=== PATIENT | female | born 1990 | race Caucasian/White ===

== ENCOUNTER → 2020-07-25 09:43 | Outpatient (BNVA) | payer MEDICAID, SELFPAY | PROVIDERS: Family Provider Family Medicine; Visit Provider Nurse Practitioner Women's Health | DX: Z34.90 Encounter for supervision of normal pregnancy, unspecified, unspecified trimester (principal) | CPT/HCPCS: 81000 ==

== ENCOUNTER 2021-02-06 02:02 | Inpatient (IN) | payer MEDICAID, SELFPAY ==
[2021-02-06] VITALS (36 sets, daily range): BP systolic 101–132; BP diastolic 58–91; PULSE 65–106; RESP 14–17; TEMP 36–36.8; O2SAT 92–99; BMI 28.5
--- NOTE | 2021-02-06 01:46 | PC.NURSE ---
Ruben HITCHCOCK, MAL CALLED AT THIS TIME TO COME TO THE HOSPITAL DUE TO PT LABORING.
[2021-02-06 02:25] LABS: Basophils % 0.3 %; Eosinophils # 0.1 10^3/uL (0.0-0.8); Eosinophils % 0.8 %; Hematocrit 38.4 % (37.0-47.0); Hemoglobin 12.1 g/dL (11.5-15.3); Lymphocytes # 1.7 10^3/uL (0.8-4.8); Lymphocytes % 11.7 %; Mean Corpuscular HGB Conc 31.5 g/dL (30.0-36.0); Mean Corpuscular Hemoglobin 27.3 pg (28.0-34.0); Mean Corpuscular Volume 86.5 fL (81-99); Mean Platelet Volume 11.3 fL (7.4-10.4); Neutrophils # 11.24 10^3/uL (1.8-7.7); Neutrophils % 79.6 %; Nucleated Red Blood Cells % 0 %; Platelet Count 255 10^3/cmm (130-400); Red Blood Count 4.44 10^6/uL (4.1-5.3); Red Cell Distribution Width 12.4 % (12.1-15.1); White Blood Count 14.1 10^3/uL (4.0-10.0)
[2021-02-06] MEDS: fentaNYL 50 mcg/mL INJ 2mL IVP (02:47)
[2021-02-06] MEDS: dextrose 5%-lactated ringers 1,000 ML 125 ML IV (04:10)
[2021-02-06] MEDS: oxytocin 30 UNIT/500 ML BAG 600 UNIT IV (04:10)
--- NOTE | 2021-02-06 04:38 | P.PCNOB_ITS ---
Delivery Note: Date of delivery: February 06, 2021 Pre-delivery diagnoses: 30-year-old 6 para 4-0-1-4 with a previous C- section at 39 weeks and 4 days presenting in active labor and desiring a trial of labor. Post-delivery diagnoses: Status post Procedure: Op report anesthesia: None Delivering Physician: Get Evans Estimated blood loss (mL): 150 Pre-Delivery Course: The patient is a 30-year-old 6 para 4-0-1-4 with an estimated gestational age of 39 weeks with a previous presenting in active labor. Her was unremarkable. Her labs were also unremarkable. Her blood type was O+. Her GBS status is negative. The patient presented to the hospital in active labor. She was 4 cm dilated and 85% effaced. She progressed to complete without difficulty. An amniotomy was performed about an hour prior to delivery. heart tones were category 1 throughout. Delivery: DELIVERY: The patient progressed to complete without difficulty. She delivered a female with a weight of 7 pounds 4 ounces with Apgars of 8, 10. The baby was delivered from the SHERICE position and placed on the mother's abdomen. The cord was then clamped and cut about 5 minutes after delivery. There was no nuchal cord. There was no meconium. The placenta and 3 vessel cord were delivered intact shortly thereafter. The perineum and vaginal vault were carefully examined. A superficial laceration was noted on the patient's right anterior vaginal wall. No repair was made.. Both the mother and the baby were in stable condition. Post-Delivery Status: Good A&P Assessment and plan (1) , delivered: Status: Acute (2) 39 weeks gestation of : Status: Acute Coding Level of Care Code Acute Health And Safety Manager for Chg Fwd Diagnoses , delivered O34.219 39 weeks gestation of Z3A.39
[2021-02-06 16:42] LABS: Hematocrit 33.8 % (37.0-47.0); Hemoglobin 10.6 g/dL (11.5-15.3); Mean Corpuscular HGB Conc 31.4 g/dL (30.0-36.0); Mean Corpuscular Hemoglobin 27.5 pg (28.0-34.0); Mean Corpuscular Volume 87.8 fL (81-99); Mean Platelet Volume 11.5 fL (7.4-10.4); Platelet Count 211 10^3/cmm (130-400); Red Blood Count 3.85 10^6/uL (4.1-5.3); Red Cell Distribution Width 12.7 % (12.1-15.1); White Blood Count 11.6 10^3/uL (4.0-10.0)
[2021-02-07 04:07] VITALS: BP 109/64; PULSE 70
[2021-02-07 04:15] VITALS: RESP 16; TEMP 36.4
--- NOTE | 2021-02-07 07:22 | PM.OBGYDC ---
Discharge Providers [employer] ATTENDANT Date of Admission: 02/06/21 02:02 Date of Discharge: 02/07/21 Attending Provider at Admission: Get Evans MD Attending Provider at Discharge: Get Evans MD Primary Care Provider: Manuel Solitario MD Diagnoses at Discharge Discharge Diagnosis (1) , delivered: Status: Acute (2) 39 weeks gestation of : Status: Acute Reason for Visit Reason for Visit: contractions Hospital Course Hospital Course This 30-year-old with a previous history of section secondary to distress I desired to have a vaginal after section. She arrived to [facility] labor and delivery in active labor and was able to deliver by spontaneous vaginal livery healthy, viable infant. She has done well since delivery with only mild lochia. There has been no significant bleeding and no significant clots. Baby is breast-feeding well. She is felt to be stable for discharge this morning. Information Peripartum Data: Delivery Method: Vaginal Physical Exam Const: COMMON NORMALS: no acute distress, average body habitus and healthy appearing HENMT: COMMON NORMALS: moist oral mucous membranes Resp: COMMON NORMALS: normal respiratory effort, No retractions, No use of accessory muscles and clear to auscultation bilaterally AUSCULTATION: clear to auscultation bilaterally Cardio: COMMON NORMALS: regular rate and regular rhythm RATE: regular rate RHYTHM: regular rhythm GI: COMMON NORMALS: Normal to inspection, nondistended, normoactive bowel sounds present, Soft to palpation (Fundus is firm and well below the umbilicus.) and non-tender PALPATION: Yes Soft to palpation (Fundus is firm and well below the umbilicus.) Back/Pelvis: COMMON NORMALS: no thoracic nor lumbar tenderness Extremity: COMMON NORMALS: normal to inspection, full ROM, no calf tenderness and no pedal edema Neuro: COMMON NORMALS: moves all extremities and no sensory deficits noted Psych: COMMON NORMALS: mental status grossly normal, cooperative and normal affect Discharge Data Data Completed and Pending: Labs from last 24 hours 02/06/21 16:30 WBC 11.6 H RBC 3.85 L Hgb 10.6 L Hct 33.8 L MCV 87.8 MCH 27.5 L MCHC 31.4 RDW 12.7 Plt Count 211 MPV 11.5 H Vitals: Last Vital Signs Temp 97.5 F L 02/07/21 04:15 Pulse 70 02/07/21 04:07 Resp 16 02/07/21 04:15 BP 109/64 02/07/21 04:07 Pulse Ox 96 02/06/21 02:36 Discharge Plan Discharge Patient Disposition: Home Condition: Stable Prescriptions: New docusate sodium 100 mg Capsule 100 mg PO BID Qty: 60 RF: 1 ibuprofen 800 mg Tablet 800 mg PO TID Qty: 90 RF: 1 Continued [place] 168 mg calcium (420 mg) tablet,chewable 168 mg PO DAILY RF: 0 prenat.vits,yue,zzj-srsj-zrpdd Tablet 1 tab PO BID RF: 0 Discharge Orders: Discharge Order (Routine); Ordered 02/07/21 Ordered By: Manuel Solitario Referrals: Get Evans MD [Physician] - 6 Weeks Discharge Diet: Usual diet Discharge Activity: Resume usual activity Patient Instructions: Opioid Safety Discharge Attestations [employer] ATTENDANT Time Spent in Discharge Care*: less than 30 min Specific Discharge Activities: Specific discharge activities: educating patient, documenting/other paperwork and evaluating patient/reviewing data Coding Level of Care Code Acute Transportation Aid for Chg Fwd Exam Comprehensive Diagnoses , delivered O34.219 39 weeks gestation of Z3A.39
[2021-02-07 09:23] VITALS: BP 92/57; PULSE 74
[2021-02-07 09:24] VITALS: RESP 16; TEMP 36.2
== END 2021-02-07 09:24 | disposition home or self-care (01) | DRG 807 ==
LOC: OPOB 02:06 → OBGYN 02-07 07:22
PROVIDERS: Admitting Provider Family Medicine; PCP Family Medicine; Visit Provider Family Medicine
DX: O34.219 Maternal care for unspecified type scar from previous cesarean delivery (principal); Z37.0 Single live birth; Z3A.39 39 weeks gestation of pregnancy
CPT/HCPCS: 12345; 36415; 59025; 59409; 85025; 85027; 98960; 99211; J3010